=== PATIENT | female | born 1980 | race Caucasian/White ===

== ENCOUNTER 2018-08-15 10:10 | Emergency (ER) | payer SELFPAY ==
[~2018-08-15] VITALS: Ht 157.5 cm; Wt 98.9 kg
[2018-08-15 10:12] VITALS: BP 126/88
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
--- NOTE | 2018-08-15 10:34 | NUR ---
Patient being evaluated by physician at bedside.
[2018-08-15] MEDS ORDERED: KETOROLAC 60 MG/2 ML VIAL IM ONE (10:40)
--- NOTE | 2018-08-15 10:46 | NUR ---
PATIENT TAKEN FOR XRAY BY [employer] AT THIS TIME.
--- NOTE | 2018-08-15 10:55 | NUR ---
RESULTS BACK AND NOTED BY ERMD AND FOR D/C
--- NOTE | 2018-08-15 11:11 | NUR ---
MEDICATED PER [facility] ORDER, PATIENT TOLERATED WELL.
[2018-08-15 11:37] VITALS: BP 120/74
--- NOTE | 2018-08-15 11:37 | NUR ---
Patient discharged with v/s stable. Written and verbal after care instructions given and explained. Patient alert, oriented and verbalized understanding of instructions. Ambulatory with steady gait. All questions addressed prior to discharge. ID band removed. Patient advised to follow up with PMD. Rx of TRAMADOL 50 MG given. Patient educated on indication of medication including possible reaction and side effects. Opportunity to ask questions provided and answered.
== END 2018-08-15 11:37 | disposition home or self-care (01) ==
LOC: MED 10:10
DX: S33.5XXA Sprain of ligaments of lumbar spine, initial encounter (principal); S20.312A Abrasion of left front wall of thorax, initial encounter; S40.212A Abrasion of left shoulder, initial encounter; E66.9 Obesity, unspecified; V89.2XXA Person injured in unspecified motor-vehicle accident, traffic, initial encounter; Y93.89 Activity, other specified; Y92.89 Other specified places as the place of occurrence of the external cause; Y99.8 Other external cause status
CPT/HCPCS: 72100; 96372; 99283; J1885